=== PATIENT | female | born 1990 | race Caucasian/White ===

== ENCOUNTER 2017-09-28 08:59 | Inpatient (IN) | payer MEDICAID ==
[2017-09-28] MEDS ORDERED: Lidocaine 1% 50 ML MDV INJECT PRN (10:34)
[2017-09-28] MEDS ORDERED: Sodium Chloride 0.9% 10 ML Syringe FLUSH PRN (10:34)
[2017-09-28] MEDS ORDERED: Misoprostol 200 MCG Tab PO PRN (10:34)
[2017-09-28] MEDS ORDERED: Carboprost Tromethamine 250 MCG/1 ML Amp IM PRN (10:34)
[2017-09-28] MEDS ORDERED: Methylergonovine 0.2 MG/1 ML Amp IM PRN (10:34)
[2017-09-28] MEDS ORDERED: Water For Irrigation,Sterile 1,000 ML Container IRR PRN (10:34)
[2017-09-28] MEDS ORDERED: Sodium Chloride 0.9% 2.5 ML Syringe FLUSH PRN (10:34)
[2017-09-28] MEDS ORDERED: Butorphanol 1 MG/ML SDV IVPUSH PRN (10:34)
[2017-09-28] MEDS ORDERED: Nalbuphine 10 MG/1 ML Vial IVPUSH PRN (10:34)
[2017-09-28] MEDS ORDERED: Oxytocin/0.9 % Sodium Chloride 30 UNIT/500 ML BAG IV SCH ×2 (10:45→14:00)
[2017-09-28] MEDS: Lactated Ringers 1,000 ML IV SCH ×4 (10:59→14:16)
--- NOTE | 2017-09-28 11:08 | PCM.LDHP ---
L&D History of Present Illness - General Date of Service: 09/28/17 Admit Problem/Dx: Patient Status Order with Admit Dx/Problem 09/28/17 09:14 Patient Status [ADT] Routine 09/28/17 10:35 Patient Status [ADT] Routine Admission Diagnosis/Problem Admission Diagnosis/Problem Source of Information: Patient History Limitations: Reports: No Limitations - History of Present Illness Improves with: Reports: None Worsens with: Reports: None Associated Symptoms: Reports: N - Related Data Allergies/Adverse Reactions: Allergies Allergy/AdvReac Type Severity Reaction Status Date / Time No Known Allergies Allergy Verified 01/07/16 17:18 Home Medications: Home Meds Vit W-Ca,Fe,FA(<1 mg) [ Vitamins] 08/02/16 [History] Past Medical History - Past Health History Medical/Surgical History: Denies Medical/Surgical History - Infectious Disease History Infectious Disease History: Reports: None Social & Family History - Family History Family Medical History: Noncontributory - Tobacco Use Smoking Status *Q: Current Every Day Smoker Years of Tobacco use: 10 Packs/Tins Daily: 0.3 Used Tobacco, but Quit: Yes Month Tobacco Last Used: 1 Second Hand Smoke Exposure: Yes - Alcohol Use Days Per Week of Alcohol Use: 1 Number of Drinks Per Day: 0 Total Drinks Per Week: 0 - Recreational Drug Use Recreational Drug Use: No Drug Use in Last 12 Months: Yes Recreational Drug Type: Reports: Marijuana/Hashish Recreational Drug Use Frequency: Not Used In Over 3 Months H&P Review of Systems - Review of Systems: Review Of Systems: See Below General: Reports: No Symptoms HEENT: Reports: No Symptoms Pulmonary: Reports: No Symptoms Cardiovascular: Reports: No Symptoms Gastrointestinal: Reports: No Symptoms Genitourinary: Reports: No Symptoms Musculoskeletal: Reports: No Symptoms Skin: Reports: No Symptoms Psychiatric: Reports: No Symptoms Neurological: Reports: No Symptoms Hematologic/Lymphatic: Reports: No Symptoms Immunologic: Reports: No Symptoms L&D Exam - Exam Exam: See Below - Vital Signs Weight: 120.746 kg - OB Specific Fundal Height In cm: 40 Contraction Duration (sec): 45 Contraction Frequency (min): 3-5 Contraction Intensity: Moderate to Strong Movement: Active Heart Tones: Present Presentation: Vertex - Wheatley Score Wheatley Score Cervix Position: Anterior Wheatley Score Consistency: Soft Wheatley Score Effacement: >80% Wheatley Score Dilation: 3-4 cm Wheatley Score Infant's Station: -1 ,0 Wheatley Score Total: 11 - Exam General: Alert, Oriented HEENT: PERRLA, Conjunctiva Clear, EACs Clear, EOMI, Hearing Intact, Mucosa Moist & [place], Nares Patent, Normal Nasal Septum, Posterior Pharynx Clear, TMs Clear Neck: Supple, Trachea Midline Lungs: Clear to Auscultation, Normal Respiratory Effort Cardiovascular: Regular Rate, Regular Rhythm GI/Abdominal Exam: Normal Bowel Sounds, Soft, Non-Tender, No Organomegaly, No Distention, No Abnormal Bruit, No Mass, Pelvis Stable Rectal Exam: Normal Exam, Normal Rectal Tone Genitourinary: Normal external exam, Normal bimanual exam, Normal speculum exam Back Exam: Normal Inspection, Full Range of Motion Extremities: Normal Inspection, Normal Range of Motion, Non-Tender, No Pedal Edema, Normal Capillary Refill Skin: Warm, Dry, Intact Neurological: Cranial Nerves Intact, Reflexes Equal Bilateral Psychiatric: Alert, Normal Affect, Normal Mood Problem List Initiated/Reviewed/Updated: Yes Orders Last 24hrs: Active Orders 24 hr Category Date Time Status Patient Status [ADT] Routine ADT 09/28/17 09:14 Active Patient Status [ADT] Routine ADT 09/28/17 10:35 Active Heart Tones [RC] CONTINUOUS Care 09/28/17 10:35 Active Non Stress Test [RC] PER UNIT ROUTINE Care 09/28/17 09:14 Active Non Stress Test [RC] PER UNIT ROUTINE Care 09/28/17 10:35 Active May Shower [RC] ASDIRECTED Care 09/28/17 10:35 Active Notify Provider [RC] PRN Care 09/28/17 10:35 Active Up ad Mayte [RC] ASDIRECTED Care 09/28/17 09:14 Active Up ad Mayte [RC] ASDIRECTED Care 09/28/17 10:35 Active Vaginal Exam [RC] Click to Edit Care 09/28/17 09:14 Active Vaginal Exam [RC] PRN Care 09/28/17 10:35 Active Vital Signs [RC] PER UNIT ROUTINE Care 09/28/17 09:14 Active Vital Signs [RC] PER UNIT ROUTINE Care 09/28/17 10:35 Active CBC W/O DIFF,HEMOGRAM [HEME] Routine Lab 09/28/17 10:56 Received TYPE AND SCREEN [BBK] Routine Lab 09/28/17 10:56 Received Butorphanol [Stadol] Med 09/28/17 10:34 Active 1 mg IVPUSH ASDIRECTED PRN Carboprost Tromethamine [Hemabate DS] Med 09/28/17 10:34 Active 250 mcg IM ASDIRECTED PRN Lactated Ringers [Ringers, Lactated] 1,000 ml Med 09/28/17 10:45 Active IV ASDIRECTED Lidocaine 1% [Xylocaine 1%] Med 09/28/17 10:34 Active 50 ml INJECT .ONCE PRN Methylergonovine [Methergine] Med 09/28/17 10:34 Active 0.2 mg IM ASDIRECTED PRN Misoprostol [Cytotec] Med 09/28/17 10:34 Active 200 mcg PO .ONCE PRN Nalbuphine [Nubain] Med 09/28/17 10:34 Active 10 mg IVPUSH ASDIRECTED PRN Oxytocin/0.9 % Sodium Chloride [Oxytocin 30 Unit/500 ML Med 09/28/17 10:45 Active -NS] 30 unit in 500 ml IV ASDIRECTED Sodium Chloride 0.9% [Saline Flush] Med 09/28/17 10:34 Active 10 ml FLUSH ASDIRECTED PRN Sodium Chloride 0.9% [Saline Flush] Med 09/28/17 10:34 Active 2.5 ml FLUSH ASDIRECTED PRN Water For Irrigation,Sterile [Sterile Water for Med 09/28/17 10:34 Active Irrigation] 1,000 ml IRR ASDIRECTED PRN Scalp Electrode [WOMSER] Per Unit Routine Oth 09/28/17 10:35 Ordered Peripheral IV Insertion Adult [OM.PC] Routine Oth 09/28/17 10:35 Ordered Resuscitation Status Routine Resus Stat 09/28/17 10:34 Ordered Medication Orders Butorphanol Tartrate (Stadol) 1 mg IVPUSH ASDIRECTED PRN PRN Reason: Pain Carboprost Tromethamine (Hemabate Ds) 250 mcg IM ASDIRECTED PRN PRN Reason: Post Hemorrhage Lactated Ringer's (Ringers, Lactated) 1,000 mls @ 150 mls/hr IV ASDIRECTED REHANA Last Admin: 09/28/17 10:59 Dose: 150 mls/hr Oxytocin/Sodium Chloride (Oxytocin 30 Unit/500 Ml-Ns) 30 unit in 500 mls @ 999 mls/hr IV ASDIRECTED REHANA Lidocaine HCl (Xylocaine 1%) 50 ml INJECT .ONCE PRN PRN Reason: Laceration repair Methylergonovine Maleate (Methergine) 0.2 mg IM ASDIRECTED PRN PRN Reason: Post Hemorrhage Misoprostol (Cytotec) 200 mcg PO .ONCE PRN PRN Reason: Post Hemorrhage Nalbuphine HCl (Nubain) 10 mg IVPUSH ASDIRECTED PRN PRN Reason: Pain (severe 7-10) Sodium Chloride (Saline Flush) 10 ml FLUSH ASDIRECTED PRN PRN Reason: Keep Vein Open Sodium Chloride (Saline Flush) 2.5 ml FLUSH ASDIRECTED PRN PRN Reason: Keep Vein Open Sterile Water (Sterile Water For Irrigation) 1,000 ml IRR ASDIRECTED PRN PRN Reason: delivery Assessment/Plan Comment:: Term in active labor
[2017-09-28] MEDS ORDERED: fentaNYL 100 MCG/2 ML SDV ONE (12:31)
[2017-09-28] MEDS ORDERED: Ropivacaine 0.2% 2 MG/ML 20 ML SDV ONE (12:31)
[2017-09-28] MEDS ORDERED: Ropivacaine HCl/PF 100 ML ONE (12:31)
--- NOTE | 2017-09-28 12:56 | PCM.PREANE ---
Preanesthetic Assessment - Anesthesia/Transfusion/Family Hx Anesthesia History: No Prior Anesthesia Family History of Anesthesia Reaction: No Transfusion History: No Prior Transfusion(s) - Review of Systems Other: Reports: None - Physical Assessment Height: 5 ft 5 in Weight: 120.746 kg ASA Class: 2 Mental Status: Alert & Oriented x3 Airway Class: Mallampati = 1 Dentition: Reports: Normal Dentition Thyro-Mental Finger Breadths: 3 Mouth Opening Finger Breadths: 3 ROM/Head Extension: Full - Lab Values: Laboratory Last Values WBC 9.18 K/uL (4.0-11.0) 09/28/17 10:56 RBC 3.65 M/uL (4.30-5.90) L 09/28/17 10:56 Hgb 11.3 g/dL (12.0-16.0) L 09/28/17 10:56 Hct 33.1 % (36.0-46.0) L 09/28/17 10:56 MCV 90.7 fL (80.0-98.0) 09/28/17 10:56 MCH 31.0 pg (27.0-32.0) 09/28/17 10:56 MCHC 34.1 g/dL (31.0-37.0) 09/28/17 10:56 RDW Std Deviation 45.2 fl (28.0-62.0) 09/28/17 10:56 RDW Coeff of Misbah 14 % (11.0-15.0) 09/28/17 10:56 Plt Count 203 K/uL (150-400) 09/28/17 10:56 MPV 10.90 fL (7.40-12.00) 09/28/17 10:56 Nucleated RBC % 0.0 /100WBC 09/28/17 10:56 Nucleated RBCs # 0 K/uL 09/28/17 10:56 Blood Type A POSITIVE 09/28/17 10:56 Antibody Screen NEGATIVE 09/28/17 10:56 - Allergies Allergies/Adverse Reactions: Allergies Allergy/AdvReac Type Severity Reaction Status Date / Time No Known Allergies Allergy Verified 01/07/16 17:18 - Blood Blood Available: Yes Product(s) Available: PRBC - Acknowledgements Anesthesia Type Planned: Epidural Pt an Appropriate Candidate for the Planned Anesthesia: Yes Alternatives and Risks of Anesthesia Discussed w Pt/Guardian: Yes Pt/Guardian Understands and Agrees with Anesthesia Plan: Yes PreAnesthesia Questionnaire - Past Health History Medical/Surgical History: Denies Medical/Surgical History - Infectious Disease History Infectious Disease History: Reports: None - SUBSTANCE USE Smoking Status *Q: Current Every Day Smoker Tobacco Use Within Last Twelve Months: Cigarettes Second Hand Smoke Exposure: Yes Days Per Week of Alcohol Use: 1 Number of Drinks Per Day: 0 Total Drinks Per Week: 0 Recreational Drug Use History: No Recreational Drug Type: Reports: Marijuana/Hashish - HOME MEDS Home Medications: Home Meds Vit W-Ca,Fe,FA(<1 mg) [ Vitamins] 08/02/16 [History] - CURRENT (IN HOUSE) MEDS Current Meds: Current Medications Butorphanol Tartrate (Stadol) 1 mg IVPUSH ASDIRECTED PRN PRN Reason: Pain Carboprost Tromethamine (Hemabate Ds) 250 mcg IM ASDIRECTED PRN PRN Reason: Post Hemorrhage Lactated Ringer's (Ringers, Lactated) 1,000 mls @ 150 mls/hr IV ASDIRECTED REHANA Last Infusion: 09/28/17 12:35 Dose: 999 mls/hr Oxytocin/Sodium Chloride (Oxytocin 30 Unit/500 Ml-Ns) 30 unit in 500 mls @ 999 mls/hr IV ASDIRECTED REHANA Lidocaine HCl (Xylocaine 1%) 50 ml INJECT .ONCE PRN PRN Reason: Laceration repair Methylergonovine Maleate (Methergine) 0.2 mg IM ASDIRECTED PRN PRN Reason: Post Hemorrhage Misoprostol (Cytotec) 200 mcg PO .ONCE PRN PRN Reason: Post Hemorrhage Nalbuphine HCl (Nubain) 10 mg IVPUSH ASDIRECTED PRN PRN Reason: Pain (severe 7-10) Last Admin: 09/28/17 11:52 Dose: 10 mg Sodium Chloride (Saline Flush) 10 ml FLUSH ASDIRECTED PRN PRN Reason: Keep Vein Open Sodium Chloride (Saline Flush) 2.5 ml FLUSH ASDIRECTED PRN PRN Reason: Keep Vein Open Sterile Water (Sterile Water For Irrigation) 1,000 ml IRR ASDIRECTED PRN PRN Reason: delivery Discontinued Medications Fentanyl (Sublimaze) Confirm Administered Dose 200 mcg .ROUTE .STK-MED ONE Stop: 09/28/17 12:32 Ropivacaine (Naropin 0.2%) Confirm Administered Dose 100 mls @ as directed .ROUTE .STK-MED ONE Stop: 09/28/17 12:32 Ropivacaine (Naropin 0.2%) Confirm Administered Dose 20 ml .ROUTE .STK-MED ONE Stop: 09/28/17 12:32
[2017-09-28] MEDS ORDERED: Terbutaline 1 MG/ML SDV SUBCUT PRN (14:00)
[2017-09-28] MEDS ORDERED: Ibuprofen 400 MG Tab PO PRN (19:06)
[2017-09-28] MEDS ORDERED: Bisacodyl 10 MG Supp RECTAL PRN (19:06)
[2017-09-28] MEDS ORDERED: Lanolin 100% Cream 7 GM Tube TOP PRN (19:06)
[2017-09-28] MEDS ORDERED: Witch Hazel Medicated Pads 40/Jar TOP PRN (19:06)
[2017-09-28] MEDS ORDERED: Benzocaine/Menthol 20%-0.5% Spray 78 GM Cannister TOP PRN (19:06)
[2017-09-28] MEDS ORDERED: oxyCODONE 5 MG Tab PO PRN (19:06)
[2017-09-28] MEDS ORDERED: Docusate Sodium 100 MG Cap PO PRN (19:06)
[2017-09-28] MEDS ORDERED: Acetaminophen 500 MG Tab PO PRN ×2 (19:06)
--- NOTE | 2017-09-28 19:35 | PCM48HPAN ---
Post Anesthesia Note - EVALUATION WITHIN 48HRS OF ANESTHETIC Vital Signs in Normal Range: Yes Patient Participated in Evaluation: Yes Respiratory Function Stable: Yes Airway Patent: Yes Cardiovascular Function Stable: Yes Hydration Status Stable: Yes Pain Control Satisfactory: Yes Nausea and Vomiting Control Satisfactory: Yes Mental Status Recovered: Yes
--- NOTE | 2017-09-29 01:45 | OR ---
SURGEON: Qasim Sibley MD DATE OF PROCEDURE: DELIVERY NOTE: Ms. Watkins is 26-year-old. She is para 1-0-0-1. She has had a previous normal spontaneous vaginal delivery. She is followed in our clinic primarily by the nurse cobol developer. She had no complication. Her GBS status was negative. The patient is admitted in active labor earlier this morning. At the time of admission, she was 5 cm, complete, vertex, intact. She had an artificial rupture of the membrane. The patient had epidural anesthesia for labor analgesia and she has continued to progress to complete, complete; however, the patient epidural anesthesia and she was not feeling her contraction and she was not pushing adequately. She pushed in excess of 2 hours without she was complete, complete, +1 station. I did a Kiwi vacuum extraction. Then, with the help of the Kiwi she was able to push the fetus out, male fetus, cried immediately. scores were reported to be 8 and 9. The weight is not available. The placenta delivered spontaneous, complete, and intact without any problem. There was no need for episiotomy. There was no perineal laceration. There was no labial laceration. ESTIMATED BLOOD LOSS: 250 to 300 mL in this . COMPLICATION: There was no complication. heart rate was category 1 through the entire process of labor. THERON / RICK /[id number]
[2017-09-29] MEDS: Ibuprofen 800 MG Tab PO PRN ×2 (06:17→10:49)
[2017-09-29 08:38] VITALS: BP 112/60
--- NOTE | 2017-09-29 08:44 | PCM.PNPP ---
- General Info Date of Service: 09/29/17 Functional Status: Reports: Pain Controlled - Review of Systems General: Reports: No Symptoms HEENT: Reports: No Symptoms Pulmonary: Reports: No Symptoms Cardiovascular: Reports: No Symptoms Gastrointestinal: Reports: No Symptoms Genitourinary: Reports: No Symptoms Musculoskeletal: Reports: No Symptoms Skin: Reports: No Symptoms Neurological: Reports: No Symptoms Psychiatric: Reports: No Symptoms - General Info Date of Service: 09/29/17 - Patient Data Vital Signs - Most Recent: Last Vital Signs Temp 36.8 C 09/29/17 08:37 Pulse 88 09/29/17 04:00 Resp 16 09/29/17 08:37 BP 112/60 09/29/17 08:37 Pulse Ox 96 09/29/17 08:37 Weight - Most Recent: 120.746 kg Lab Results - Last 24 Hours: Laboratory Results - last 24 hr 09/28/17 09/28/17 09/29/17 Range/Units 10:56 10:56 05:25 WBC 9.18 (4.0-11.0) K/uL RBC 3.65 L (4.30-5.90) M/uL Hgb 11.3 L 11.2 L (12.0-16.0) g/dL Hct 33.1 L 33.1 L (36.0-46.0) % MCV 90.7 (80.0-98.0) fL MCH 31.0 (27.0-32.0) pg MCHC 34.1 (31.0-37.0) g/dL RDW Std Deviation 45.2 (28.0-62.0) fl RDW Coeff of Misbah 14 (11.0-15.0) % Plt Count 203 (150-400) K/uL MPV 10.90 (7.40-12.00) fL Nucleated RBC % 0.0 /100WBC Nucleated RBCs # 0 K/uL Blood Type A POSITIVE Antibody Screen NEGATIVE Med Orders - Current: Current Medications Acetaminophen (Tylenol Extra Strength) 500 mg PO Q4H PRN PRN Reason: Pain Acetaminophen (Tylenol Extra Strength) 1,000 mg PO Q4H PRN PRN Reason: Pain Benzocaine/Menthol (Dermoplast Pain Relief 20%-0.5% [place]) 78 gm TOP ASDIRECTED PRN PRN Reason: Perineal Comfort Measure Last Admin: 12/13/17 06:18 Dose: 1 canister Bisacodyl (Dulcolax) 10 mg RECTAL .ONCE PRN PRN Reason: Constipation Butorphanol Tartrate (Stadol) 1 mg IVPUSH ASDIRECTED PRN PRN Reason: Pain Carboprost Tromethamine (Hemabate Ds) 250 mcg IM ASDIRECTED PRN PRN Reason: Post Hemorrhage Docusate Sodium (Colace) 100 mg PO BID PRN PRN Reason: Constipation Emollient Ointment (Lansinoh Hpa) 0 gm TOP ASDIRECTED PRN PRN Reason: Sore Nipples Lactated Ringer's (Ringers, Lactated) 1,000 mls @ 150 mls/hr IV ASDIRECTED REHANA Last Admin: 09/28/17 14:16 Dose: 150 mls/hr Oxytocin/Sodium Chloride (Oxytocin 30 Unit/500 Ml-Ns) 30 unit in 500 mls @ 999 mls/hr IV ASDIRECTED REHANA Oxytocin/Sodium Chloride (Oxytocin 30 Unit/500 Ml-Ns) 30 unit in 500 mls @ 2 mls/hr IV TITRATE REHANA; 2 MUNITS/MIN PRN Reason: Protocol Last Titration: 09/28/17 19:30 Dose: Infused Ibuprofen (Motrin) 400 mg PO Q4H PRN PRN Reason: Pain Ibuprofen (Motrin) 800 mg PO Q6H PRN PRN Reason: Pain Last Admin: 09/29/17 06:17 Dose: 800 mg Lidocaine HCl (Xylocaine 1%) 50 ml INJECT .ONCE PRN PRN Reason: Laceration repair Methylergonovine Maleate (Methergine) 0.2 mg IM ASDIRECTED PRN PRN Reason: Post Hemorrhage Misoprostol (Cytotec) 200 mcg PO .ONCE PRN PRN Reason: Post Hemorrhage Nalbuphine HCl (Nubain) 10 mg IVPUSH ASDIRECTED PRN PRN Reason: Pain (severe 7-10) Last Admin: 09/28/17 11:52 Dose: 10 mg Oxycodone HCl (Oxycodone) 5 mg PO Q2H PRN PRN Reason: Pain Sodium Chloride (Saline Flush) 10 ml FLUSH ASDIRECTED PRN PRN Reason: Keep Vein Open Sodium Chloride (Saline Flush) 2.5 ml FLUSH ASDIRECTED PRN PRN Reason: Keep Vein Open Sterile Water (Sterile Water For Irrigation) 1,000 ml IRR ASDIRECTED PRN PRN Reason: delivery Terbutaline Sulfate (Brethine) 0.25 mg SUBCUT ASDIRECTED PRN PRN Reason: Tacysystole Witch Karina (Tucks) 1 pad TOP ASDIRECTED PRN PRN Reason: comfort care Last Admin: 09/29/17 06:18 Dose: 1 tub Discontinued Medications Fentanyl (Sublimaze) Confirm Administered Dose 200 mcg .ROUTE .STK-MED ONE Stop: 09/28/17 12:32 Ropivacaine (Naropin 0.2%) Confirm Administered Dose 100 mls @ as directed .ROUTE .STK-MED ONE Stop: 09/28/17 12:32 Ropivacaine (Naropin 0.2%) Confirm Administered Dose 20 ml .ROUTE .STK-MED ONE Stop: 09/28/17 12:32 - Interaction Disposition, : in Room with Family Infant Interaction: Holding Infant Infant Feeding: Attempted ; Nursed Fair/Poor Support Person: Significant Other - Exam General: Alert, Oriented HEENT: Pupils Equal Neck: Supple Lungs: Clear to Auscultation, Normal Respiratory Effort Cardiovascular: Regular Rate, Regular Rhythm GI/Abdominal Exam: Normal Bowel Sounds, Soft, Non-Tender, No Organomegaly, No Distention, No Abnormal Bruit, No Mass, Pelvis Stable Extremities: Normal Inspection, Normal Range of Motion, Non-Tender, No Pedal Edema, Normal Capillary Refill Skin: Warm, Dry, Intact Wound/Incisions: Healing Well Neurological: No New Focal Deficit Psy/Mental Status: Alert, Normal Affect, Normal Mood - Problem List Review Problem List Initiated/Reviewed/Updated: Yes - My Orders Last 24 Hours: My Active Orders 09/28/17 10:34 Butorphanol [Stadol] 1 mg IVPUSH ASDIRECTED PRN Carboprost Tromethamine [Hemabate DS] 250 mcg IM ASDIRECTED PRN Lidocaine 1% [Xylocaine 1%] 50 ml INJECT .ONCE PRN Methylergonovine [Methergine] 0.2 mg IM ASDIRECTED PRN Misoprostol [Cytotec] 200 mcg PO .ONCE PRN Nalbuphine [Nubain] 10 mg IVPUSH ASDIRECTED PRN Sodium Chloride 0.9% [Saline Flush] 10 ml FLUSH ASDIRECTED PRN Sodium Chloride 0.9% [Saline Flush] 2.5 ml FLUSH ASDIRECTED PRN Water For Irrigation,Sterile [Sterile Water for Irrigation] 1,000 ml IRR ASDIRECTED PRN Resuscitation Status Routine 09/28/17 10:35 May Shower [RC] ASDIRECTED Notify Provider [RC] PRN Scalp Electrode [WOMSER] Per Unit Routine Peripheral IV Insertion Adult [OM.PC] Routine 09/28/17 10:45 Lactated Ringers [Ringers, Lactated] 1,000 ml IV ASDIRECTED Oxytocin/0.9 % Sodium Chloride [Oxytocin 30 Unit/500 ML-NS] 30 unit in 500 ml IV ASDIRECTED 09/28/17 14:00 Oxytocin/0.9 % Sodium Chloride [Oxytocin 30 Unit/500 ML-NS] 30 unit in 500 ml IV TITRATE Terbutaline [Brethine] 0.25 mg SUBCUT ASDIRECTED PRN 09/28/17 14:01 Bedrest Bathroom Privileges [RC] ASDIRECTED Communication Order [RC] ASDIRECTED Communication Order [RC] ASDIRECTED Communication Order [RC] ASDIRECTED Notify Provider [RC] PRN Oxygen Therapy [RC] ASDIRECTED 09/28/17 14:15 Medication Administration Instruction [OM.PC] Q3H 09/28/17 19:06 Patient Status [ADT] Routine February Shower [RC] ASDIRECTED Up ad Mayte [RC] ASDIRECTED Vital Signs [RC] PER UNIT ROUTINE Acetaminophen [Tylenol Extra Strength] 1,000 mg PO Q4H PRN Acetaminophen [Tylenol Extra Strength] 500 mg PO Q4H PRN Benzocaine/Menthol [Dermoplast Pain Relief 20%-0.5% [place]] 78 gm TOP ASDIRECTED PRN Bisacodyl [Dulcolax] 10 mg RECTAL .ONCE PRN Docusate Sodium [Colace] 100 mg PO BID PRN Ibuprofen [Motrin] 400 mg PO Q4H PRN Ibuprofen [Motrin] 800 mg PO Q6H PRN Lanolin [Lansinoh HPA] See Dose Instructions TOP ASDIRECTED PRN Witch Karina [Tucks] 1 pad TOP ASDIRECTED PRN oxyCODONE 5 mg PO Q2H PRN Assess Lochia [WOMSER] Per Unit Routine Assess Uterine Involution [WOMSER] Per Unit Routine Peripheral IV Discontinue [OM.PC] Routine 09/28/17 21:30 Insert Blakely Catheter [Insert Urinary Catheter] [OM.PC] Q24H - Assessment Assessment:: Status post normal spontaneous vaginal delivery no complications the patient will like to go home today - Plan Plan:: Term in active labor
== END 2017-09-29 20:20 | disposition home or self-care (01) | DRG 775 ==
LOC: MW.OBCHECK 08:59 → MW.OB 09:03 → MW.OBCHECK 10:33 → MW.OB 10:34 → OBSVTOIN 19:00 → MW.OB 09-29 00:47
PROVIDERS: ADMIT Obstetrics & Gynecology; ATTEND Advanced Practice Midwife
PROC: 10D07Z6 Extraction of Products of Conception, Vacuum, Via Natural or Artificial Opening (ICD-10-PCS; principal; 2017-09-28)
PROC: 10907ZC Drainage of Amniotic Fluid, Therapeutic from Products of Conception, Via Natural or Artificial Opening (ICD-10-PCS; 2017-09-28)
PROC: 00HU33Z Insertion of Infusion Device into Spinal Canal, Percutaneous Approach (ICD-10-PCS; 2017-09-28)
DX: O80 Encounter for full-term uncomplicated delivery (principal); O66.5 Attempted application of vacuum extractor and forceps; Z37.0 Single live birth; Z3A.40 40 weeks gestation of pregnancy
CPT/HCPCS: 36415; 51702; 59025; 59409; 85014; 85018; 85027; 86850; 86900; 86901; A9270-GY; J2300; J2590; J7120

== ENCOUNTER 2025-04-25 10:23 | Emergency (ER) | payer SELFPAY ==
[2025-04-25 18:50] VITALS: BP 120/88; PULSE 87
== END 2025-04-25 11:20 | disposition home or self-care (01) ==
LOC: MW.ED 10:23
DX: R60.9 Edema, unspecified (principal); E66.9 Obesity, unspecified; Z68.43 Body mass index [BMI] 50.0-59.9, adult
CPT/HCPCS: 99282; 99283